=== PATIENT | female | born 1955 | race African-American/Black ===

== ENCOUNTER 2016-07-22 23:47 | Emergency (ER) | payer OTHER ==
[~2016-07-22 23:47] MED LIST: ALBUTEROL17 GM INH; ALBUTEROL17 GM NEB; ALPRAZOLAM PO; AMBIEN PO; HEPATITIS MED; LORTAB 10/500 T1 TAB PO; PERCODAN TABLET1 TAB PO; PHENERGAN W/CO120 ML PO
== END 2016-07-23 01:50 | disposition home or self-care (01) ==
LOC: CED 23:47
DX: S61.012A Laceration without foreign body of left thumb without damage to nail, initial encounter (principal); W26.0XXA Contact with knife, initial encounter; Y92.009 Unspecified place in unspecified non-institutional (private) residence as the place of occurrence of the external cause
CPT/HCPCS: 12001; 99283